=== PATIENT | female | born 1990 | race Two or more races ===

== ENCOUNTER 2016-07-14 15:54 | Emergency (ER) | payer OTHER ==
[~2016-07-14] VITALS: Ht 157.5 cm; Wt 68.0 kg
[2016-07-14 15:55] VITALS: BP 118/85
[2016-07-14] MEDS ORDERED: IBUP600T26 PO (16:42)
[2016-07-14] MEDS ORDERED: CYCL10TA PO (16:42)
== END 2016-07-14 16:47 | disposition home or self-care (01) ==
LOC: M ED 16:40
DX: S39.012A Strain of muscle, fascia and tendon of lower back, initial encounter (principal); S29.019A Strain of muscle and tendon of unspecified wall of thorax, initial encounter; X58.XXXA Exposure to other specified factors, initial encounter; Y92.89 Other specified places as the place of occurrence of the external cause; Y93.89 Activity, other specified; Y99.8 Other external cause status

== ENCOUNTER → 2016-07-23 | Outpatient (REF) | payer OTHER ==
[~2016-07-23] MED LIST: CYCL10TA PO; IBUP600T26 PO
[2016-07-23 17:50] LABS: FREE T4 0.71 NG/DL (0.76-1.46)
== END ==
LOC: M SFHCPLAZ 11:05
PROVIDERS: ATTEND Family Medicine
DX: R53.83 Other fatigue (principal)

== ENCOUNTER → 2016-08-07 | Outpatient (REF) | payer OTHER | LOC: M LAB REF 12:24 | PROVIDERS: ATTEND Family Medicine | DX: Z12.4 Encounter for screening for malignant neoplasm of cervix (principal) ==

== ENCOUNTER → 2016-09-21 | Outpatient (REF) | payer OTHER ==
[~2016-09-21] MED LIST changes: +IBUP-1022 PO; -IBUP600T26 PO
== END ==
LOC: M LABDRAW1 15:32
PROVIDERS: ATTEND Family Medicine
DX: E03.9 Hypothyroidism, unspecified (principal)

== ENCOUNTER → 2016-12-11 | Outpatient (REF) | payer OTHER, SELFPAY | LOC: M SFHCPLAZ 13:06 | PROVIDERS: ATTEND Family Medicine | DX: E03.9 Hypothyroidism, unspecified (principal) ==

== ENCOUNTER → 2017-01-27 | Outpatient (REF) | payer OTHER | LOC: M SFHCPLAZ 13:00 | PROVIDERS: ATTEND Family Medicine | DX: N94.10 Unspecified dyspareunia (principal) ==

== ENCOUNTER → 2017-03-30 | Outpatient (REF) | payer OTHER ==
[2017-03-30 11:38] LABS: HEMATOCRIT 40.6 % (36.0-47.0); HEMOGLOBIN 13.5 g/dl (12.0-16.0); MEAN CORPUSCULAR HEMOGLOBIN 28.8 pg (27.0-33.0); MEAN CORPUSCULAR HGB CONC 33.3 g/dl (32.0-36.5); MEAN CORPUSCULAR VOLUME 86.8 fl (80.0-96.0); PLATELET COUNT, AUTOMATED 270 10^3/uL (150-450); RED BLOOD COUNT 4.68 10^6/uL (4.00-5.40); RED CELL DISTRIBUTION WIDTH 13.1 % (11.5-14.5); WHITE BLOOD COUNT 8.6 10^3/uL (4.0-10.0)
[2017-03-30 12:48] LABS: FREE T4 1.11 NG/DL (0.76-1.46)
== END ==
LOC: M SFHCPLAZ 08:42
DX: N92.1 Excessive and frequent menstruation with irregular cycle (principal); E03.9 Hypothyroidism, unspecified
CPT/HCPCS: 84443